=== PATIENT | female | born 1970 | race Caucasian/White ===

== ENCOUNTER 2023-09-14 05:08 | Observation (INO) ==
--- NOTE | 2023-08-16 10:34 | PAT Medication Instructions ---
Medication Instructions Date of Service August 16, 2023 Home Medications cholecalciferol (vitamin D3) 1 dose PO QAM clonazepam 1 mg tablet 1 mg PO QAM levothyroxine 75 mcg capsule 75 mcg PO QAM loratadine 10 mg capsule 10 mg PO QAM meloxicam 15 mg tablet 15 mg PO QAM sertraline 50 mg tablet 50 mg PO QAM albuterol sulfate 90 mcg/actuation aerosol inhaler 1 inh inhalation QID PRN sob losartan 100 mg tablet 100 mg PO QAM trazodone 50 mg tablet 50 - 100 mg PO HS PRN Sleep ASK your surgeon for instructions meloxicam 15 mg tablet 15 mg PO QAM DO NOT take the morning of surgery cholecalciferol (vitamin D3) 1 dose PO QAM loratadine 10 mg capsule 10 mg PO QAM losartan 100 mg tablet 100 mg PO QAM Take morning of surgery With a small sip of water, OTHERWISE NOTHING TO EAT OR DRINK AFTER MIDNIGHT: clonazepam 1 mg tablet 1 mg PO QAM levothyroxine 75 mcg capsule 75 mcg PO QAM sertraline 50 mg tablet 50 mg PO QAM albuterol sulfate 90 mcg/actuation aerosol inhaler 1 inh inhalation QID PRN sob (use if needed; please bring with you to hospital day of surgery if possible) Take evening before surgery albuterol sulfate 90 mcg/actuation aerosol inhaler 1 inh inhalation QID PRN sob (if needed) trazodone 50 mg tablet 50 - 100 mg PO HS PRN Sleep (if needed) Other Notes If you have any questions please call us at [phone] or [phone] or [phone] or [phone]
--- NOTE | 2023-08-21 09:26 | Anesthesiology Consultation ---
Date of Service August 21, 2023 Assessment & Plan (1) Encounter for pre-operative examination: Chart Review Chart Review: Acceptable Risk for Surgery and Patient seen in Pre Admission Testing - Check test AM DOS Pt currently scheduled as 23 hours observation. If surgeon decides to change patient to Same Day Joint, patient would be acceptable risk for TKA, pending patient is motivated, has good support and surgeon's office completes [facility] Program preop requirements. Per PAT appt on 08/21/23, no recent illness/disease exposures, illness related symptoms, or recent illness/disease positive tests. Will leave to surgeon's discretion if preop Covid testing needed Teaching & Discussion Pre-Anesthesia Teaching/Discussion Notes: Instructed NPO after midnight before surgery,except medications with 15 cc of water. Medication instructions provided according to the PAT guidelines. History Surgery Operation Date: 09/14/23 10:40 Proposed Procedures p Left Total Knee Arthroplasty - Higinio Dyer MD Height/Weight Height: 5 ft 9 in Weight: 92.1 kg Allergies Allergy/AdvReac Type Severity Reaction Status Date / Time cephalexin [From Keflex] Allergy Unknown rash,hives Verified 08/14/23 16:38 Penicillins Allergy Unknown rash,hives Verified 08/14/23 16:38 ciprofloxacin [From Cipro] Allergy rash,hives Verified 08/14/23 16:38 Medications Home Medications Medication Instructions Recorded Confirmed Last Taken cholecalciferol (vitamin D3) 1 dose PO QAM 07/28/19 08/14/23 Unknown clonazepam 1 mg tablet 1 mg PO QAM 07/28/19 08/14/23 Unknown levothyroxine 75 mcg capsule 75 mcg PO QAM 07/28/19 08/14/23 Unknown loratadine 10 mg capsule 10 mg PO QAM 07/28/19 08/14/23 Unknown meloxicam 15 mg tablet 15 mg PO QAM 07/28/19 08/14/23 Unknown sertraline 50 mg tablet 50 mg PO QAM 07/28/19 08/14/23 Unknown albuterol sulfate 90 mcg/actuation 1 inh inhalation QID PRN sob 08/14/23 08/14/23 Unknown aerosol inhaler losartan 100 mg tablet 100 mg PO QAM 08/14/23 08/14/23 Unknown trazodone 50 mg tablet 50 - 100 mg PO HS PRN Sleep 08/14/23 08/14/23 Unknown Past Medical History Medical History Anxiety Asthma rare use of PRN inhaler usually only needs inhaler with illness/cold weather 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 per pt, r/t dehydration and cardiac workup wnl. PCP ordered Holter monitor- no significant issues Hypothyroidism Osteoarthritis Exercise / Class Metabolic Activity II 4-5 Yardwork/Stairs/Walk up hill (one flight of stairs - no chest pain or SOB ) Past Family History Family History Other Coronary heart disease Deep vein thrombosis Diabetes Past Surgical History Surgical History History of laparoscopy History of wisdom tooth extraction Past Anesthesia History No Hx of Anesthesia Complications and No Family Hx of Anesthesia Complications History of PONV No Hx of PONV and No Hx of Motion Sickness Social History Smoking Status: Never smoker Do You Dip or Chew Tobacco: No Hx Alcohol Use: Yes Alcohol type: wine alcohol intake frequency: holidays/special occasions only Hx Substance Use: No substance use type: does not use Review of Systems Mild OTONIEL noted on sleep study "many years ago"- no device - still snores Patient denies chest pain, shortness of breath, dyspnea on exertion, reflux, cough, wheezing, palpitations. No hx of seizures, stroke, DE. No hx of blood clots or blood transfusions Physical Exam Vital Signs VITALS BP 121/58 P 68 TEMP 97.8 SP02 100% RESP 16 Constitutional no acute distress ENMT Mouth: no TMJ clicking Thyromental Distance: > or= 3.5 Finger Breadths (3.5) Mallampati Class: II Missing side teeth and molars Neck neck extension not limited Respiratory normal respiratory effort; no respiratory distress Auscultation: lungs clear to auscultation bilaterally; no wheezes Cardiovascular Rate/Rhythm: regular rate and regular rhythm Heart Sounds: no murmur Vessels: no carotid bruit Musculoskeletal Spine: no pain with cervical ROM Extremities: extremities normal to inspection Psychiatric Orientation: alert Lab Results Anesthesia Preop Results Results Anesthesia Widget: PT 11.0 Seconds (9.0-12.0) 08/21/23 PTT 27 Seconds (21-31) 08/21/23 INR 1.0 (0.9-1.1) 08/21/23 Blood Type AB Positive 08/21/23 Antibody Screen NEGATIVE 08/21/23 Testing Laboratory Results 08/09/23= WBC: 9.64 H/H: 14.6/44.1 PLATELETS: 233 SODIUM: 138 POTASSIUM: 3.9 CHLORIDE: 104 CO2: 30.5 BUN: 13.8 CREATININE: 0.71 GLUCOSE: 110 HGB A1C: 5.3 Electrocardiogram Date: 08/21/23 Sinus rhythm with first-degree AV block at 60 bpm Chest X-Ray Date: 08/21/23 Findings: + NAD FINDINGS: The lungs are clear. Prominence of the cardiac silhouette and hazy appearance to the right heart border is likely due to the pectus excavatum deformity.. No pleural effusions. No pneumothorax Other Testing Holter monitor 05/02/2023 = prevailing rhythm is sinus with heart rate varying between 65 and 128 with an average of 85 bpm, there was no significant pauses seen. There is a first-degree AV block. Solitary supraventricular and a solitary ventricular ectopic
--- NOTE | 2023-09-09 09:28 | History & Physical Report ---
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 #2 moderately advanced right hip DJD. I do think her knees are more symptomatic and more of an issue than her hip at this point. She is failed all conservative measures. Plan: We talked about treatment and her young age. She is failed conservative treatment. She like to proceed with left knee replacement. She is likely going to need her right knee and her right hip replacement done at some point in the future. Orgran proceed with left knee replacement. The risks Mente this procedure explained the patient clued but not limited to DVT, , infection, neurovascular injury, bleeding problems, pain, limited range of motion, stiffness, failure relieve her symptoms, incomplete relief of symptoms. The patient understands and desires to proceed informed consent is obtained. She is plan on staying overnight and hopefully discharge postop day 1. She will [facility] home [facility] program. DVT prophylaxis will be thigh-high teds, SCDs, aspirin twice a day. (2) Arthritis of right hip: History of Present Illness Chief Complaint: . Bilateral knee pain discomfort left side greater than the right. Primary Care Provider: NO PCP . 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 Her mother is been a long-term patient of mine in the past. She has a several year history of multiple joint aches and pains most severely in her knees but some in the right hip as well. She has been through extensive conservative treatment with SPECT of her knees over the years which have become less successful. She has had multiple steroid shots which provide very temporary relief only. She is gel shots which really did not help at all. She is looking to have her knees replaced. The left knee is a bit more painful than the right. The hip is manageable currently. Allergies Allergy/AdvReac Type Severity Reaction Status Date / Time cephalexin [From Keflex] Allergy Unknown rash,hives Verified 08/14/23 16:38 Penicillins Allergy Unknown rash,hives Verified 08/14/23 16:38 ciprofloxacin [From Cipro] Allergy rash,hives Verified 08/14/23 16:38 Home Medications Medication Instructions Recorded Confirmed Type cholecalciferol (vitamin D3) 1 dose PO QAM 07/28/19 08/14/23 History clonazepam 1 mg tablet 1 mg PO QAM 07/28/19 08/14/23 History levothyroxine 75 mcg capsule 75 mcg PO QAM 07/28/19 08/14/23 History loratadine 10 mg capsule 10 mg PO QAM 07/28/19 08/14/23 History meloxicam 15 mg tablet 15 mg PO QAM 07/28/19 08/14/23 History sertraline 50 mg tablet 50 mg PO QAM 07/28/19 08/14/23 History albuterol sulfate 90 mcg/actuation 1 inh inhalation QID PRN sob 08/14/23 08/14/23 History aerosol inhaler losartan 100 mg tablet 100 mg PO QAM 08/14/23 08/14/23 History trazodone 50 mg tablet 50 - 100 mg PO HS PRN Sleep 08/14/23 08/14/23 History Past Med/Surg History Medical History History of tachycardia 04/2023- [place] ER visit. per pt, r/t dehydration and cardiac workup wnl. 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 at PAT appt 08/21/23 Hypothyroidism Asthma rare use of PRN inhaler usually only needs inhaler with illness/cold weather Anxiety Depression Surgical History History of wisdom tooth extraction History of laparoscopy Family History Other Coronary heart disease Deep vein thrombosis Diabetes Social History Smoking Status: Never smoker Second Hand Exposure: No; Do You Dip or Chew Tobacco: No; Hx Alcohol Use: Yes Alcohol type: wine Hx Substance Use: No Preferred Language: Irish Communication Ability: Effective Supervisor Special Education Required: No Beliefs That Will Affect Care: None marital status: Current Living Situation: Family Feels Safe at Home: Yes Assistive Devices: Glasses Review of Systems All systems reviewed & are unremarkable except as noted in HPI & below. Physical Exam . Physical examination reveals a pleasant middle-age female. Looks in pretty good health. Examination of both knees reveal patient who ambulates with a bit of a waddling gait. Examination of left knee reveals varus alignment to her knee. Range of motion about 10 degrees show full extension to 120 degrees of flexion. No instability. No particular pain with hip motion. Small knee effusion. Moderate soft tissue envelope. Examination of the right knee reveals slight varus alignment. She got bony perjury medially. Range of motion 5-1 20. No instability. Constitutional WD/WN, vitals as above Neck trachea midline, no thyromegaly Respiratory normal respiratory effort, lungs clear to auscultation Cardiovascular RRR, no murmur, no edema Gastrointestinal (Abdomen) normal bowel sounds, soft, nontender, no hepatosplenomegaly Results & Data Results & Data Laboratory Results . Diagnostic Findings . X-rays of both knees were reviewed. Shows advanced bilateral knee DJD for the left knee is a bit worse than the right. She is got some tibiofemoral subluxation. She got significant patellofemoral disease as well. PG Care Time/CCT Total # of Minutes Spent Total Time Spent with Patient: Total time spent is greater than 50% in coordination of care (as documented) at patient's floor/unit and/or counseling patient: Coding Level of Care Code None Diagnoses Bilateral primary osteoarthritis of knee M17.0 Arthritis of right hip M16.11
[~2023-09-14 05:08] MED LIST: ALLERGY Noted to ORDERED Medication SCH
[2023-09-14] MEDS: LR 60ML/HR IV SCH (06:02)
[2023-09-14] MEDS: LR 500ML BOLUS, THEN 15ML/HR IV SCH (06:02)
[2023-09-14 06:06] LABS: Pregnancy Test, Serum Negative (Negative)
[2023-09-14] MEDS: ACETAMINOPHEN 500 MG TAB PO SCH ×2 (06:09→14:26)
[2023-09-14] MEDS: FAMOTIDINE 20 MG TAB PO SCH (06:09)
[2023-09-14] MEDS: dexAMETHasone**PF** 10 MG/ML VIAL IV SCH (06:09)
[2023-09-14] MEDS: CeleBREX 200 MG CAP PO SCH (06:09)
[2023-09-14] MEDS: METOCLOPRAMIDE HCL 10 MG TABLET PO SCH (06:09)
[2023-09-14] MEDS: Scopolamine 1 MG TDSY TD SCH (06:09)
[2023-09-14] MEDS ORDERED: BUPIVACAINE 0.5 % 5 MG/1 ML PF 10ML VIAL ONE (06:18)
[2023-09-14] MEDS ORDERED: ROPIVACAINE 0.5% 5 MG/ML 30 ML VIAL ONE (06:18)
[2023-09-14] MEDS ORDERED: PROPOFOL IV EMULSION 10 MG/ML 20 ML VIAL IV ONE ×3 (06:40→08:31)
[2023-09-14] MEDS ORDERED: MIDAZOLAM HCL 1 MG/ML 2ML VIAL ONE (06:40)
--- NOTE | 2023-09-14 06:53 | History & Physical Bridge Note ---
Date of Service September 14, 2023 History & Physical Bridge Note I have examined the patient, reviewed the History & Physical and in the interval since the performance of the History & Physical I have noted the following changes of clinical significance: no changes noted
[2023-09-14] MEDS ORDERED: Nursing to Pharmacy Communication SCH (07:00)
[2023-09-14] MEDS: ceFAZolin 2000MG 2,000 MG/15 ML SYR IV SCH ×2 (07:00→14:31)
[2023-09-14] MEDS: ceFAZolin 2,000 MG/15 ML IV PUSH IV ONE (07:40)
[2023-09-14] MEDS: ORTHO JOINT ANESTHETIC ONE (07:40)
[2023-09-14] MEDS: TRANEXAMIC ACID 1,000 MG **IV Intra-op IV SCH (07:53)
[2023-09-14] MEDS: ROPIV 0.5% 246mg, Ketorolac 30mg, EPINEPHrine 0.5mg in NSS INFIL SCH (08:34)
--- NOTE | 2023-09-14 08:44 | Operative Report ---
PG Post Operative Report Pre & Post Diagnosis Operation Date: 09/14/23 07:00 Pre-Op Diagnosis: Bilateral primary osteoarthritis of left knee Post-Op Diagnosis: Bilateral primary osteoarthritis of left knee I identified the patient and participated in the time-out.: Yes Procedure Operation Date: 09/14/23 07:00 Actual Procedures p Left Total Knee Arthroplasty(Left) - Higinio Dyer MD Surgeon Higinio Dyer MD Open Source Developer Deshaun Manning PA-C Estimated Blood Loss 50 Findings Consistent with Post-Op Diagnosis Operative findings revealed advanced the left knee DJD. She had extensive grade 4 [id number] disease the medial and patellofemoral compartments. Moderate- sized joint effusion. Specimens Left knee sent for pathology. Anesthesia Type Spinal MAC Complications none Disposition Accompanied Patient To Recovery: No Indications Patient is a 53-year-old female who initially had a several year history of increasing bilateral knee pain discomfort left side greater than the right. She failed all conservative measures. X-rays show advanced bilateral knee arthritis. She elected proceed with left total knee arthroplasty. Description of Procedure Operative implants consist of: 1. Biomet Vanguard size 65 left Po stabilized femoral component. 2. Biomet size 71 tibial tray. 3. 12 mm post stabilized polyethylene insert. 4. 31 x 8 all poly patella. The patient was taken the op room, identified, placed on the operating table in the supine position. All contact areas were appropriately padded. IV antibiotics 5 by anesthesia team. Spinal anesthetic and been implemented in the holding area along with an abductor canal block. A Mcdonald catheter was placed in sterile fashion to the left thigh tent was then placed in the left lower extremities then prepped and draped in usual sterile fashion. The left leg was elevated and exsanguinated with use of an Esmarch and the tourniquet was placed at 300 mmHg. An anterior approach the left knee was then performed to longitudinal incision centered over the patella. Sharp dissection was got through subcutaneous tissue down the extensor mechanism. A medial parapatellar arthrotomy incision was made. Some subperiosteal dissection was carried out medially. The fat pad was resected from Neath patella tendon. The lateral patellofemoral ligament was released. Patella subluxated laterally and the knee was flexed. The osteophytes taken on distal femur. The ACL and PCL were then released from distal femur and the tibia subluxated anteriorly. The external tibial alignment jig was then placed in the interface the tibia and adjusted 14 mm medially. Proximal tibial cut was made remove about a millimeter bone from the most deficient aspect medial tibial plateau. Some osteophytes taken off medially. The tibia sized to a size 71. Attention drawn to the femur. The distal femur stem with a sharp drill. Intramedullary canal was suction. A left 5 degree valgus cutting guide was placed. Distal femoral cutting block was pinned in place. Distal femoral cut was made take an additional 3 mm of bone off distal femur. The femur was then sized to a size 65. The AP cutting block was pinned parallel to the epicondylar axis which was 5 degrees of external rotation. The anterior cut, anterior chamfer, posterior cut, posterior chamfer cuts were made. The box cutting guide was placed in just slight lateral and the box cut was made. The knee was flexed. The remnants of the medial and lateral menisci were excised. The osteophytes taken off the posterior aspect the femur. A trial femoral component was placed for the tibial tray was pinned Char external rotation and the drill and stem punch were used to create defect in proximal tibia for the tibial tray. The knee was then trialed and the 12 mm insert fit most appropriately. Attention drawn the patella. The patella was cleaned of all soft tissue. Patella thickness measured 22 mm in thickness was cut down to 13. Was sized to a size 31 patella. The lug holes were drilled for 31 patella. The lateral osteophytes removed. Patella button was placed. Knee was taken through range of motion patella tracked nicely with no thumbs test. Attention drawn to place the permanent components. Nupathe all trial components were removed. Bone plug was placed in the distal femur limit blood loss. Double batch Palacos G cement was mixed. A Biomet Vanguard size 65 left Po stabilized femoral component, size 71 tibial tray, a 12 mm post stabilized polyethylene insert, and a 31 x 8 all poly patella then cemented in place. The knee was brought out into full extension till cement hardened. Final cement check was then performed. The pericapsular tissues were injected with total 100 cc of orthopedic joint mix. The patient did receive 1 g tranexamic acid. The tourniquet was then let down for final tourniquet time 54 minutes. Hemostasis assured the electrocautery. Extensor Meclomen closed with combination 1 PDS suture #1 Vicryl suture in a [id number] fashion. Extensor Meclomen checked found intact and subcutaneous tissues then closed with 2 Dexon suture in buried interrupted fashion skin was closed skin heather. Leg was then cleaned and dried and sterile dressing with Xeroform, 4 fours, sterile cast padding, Landon bandage were applied. Patient then transferred to the recovery in stable condition. Patient tolerated procedure well and there were no complications. Deshaun Manning, my physician supply assistant, was present for the entire procedure. His assistance was essential and required for appropriate patient positioning, prepping and draping, surgical exposure, performing the technical details of the operation, placement the implants, closure of the wound, and placement of the sterile bandage. I attest to the content of the Intraoperative Record and any orders documented therein. Any exceptions are noted below.
--- NOTE | 2023-09-14 09:06 | XRay Report ---
XR knee LT 1 or 2V routine HISTORY: 53 years-old Female Surgical Post Op left knee arthroplasty COMPARISON: 08/09/2023 TECHNIQUE: 2 views of the left knee FINDINGS: Total joint arthroplasty with patellar resurfacing. Anterior midline skin heather with expected posto perative soft tissue swelling and deep tissue air. No acute fracture, dislocation or unexpected opaqu e foreign body. IMPRESSION: Total joint arthroplasty with expected postoperative changes. ACT 112: Negative or not required by law. The above report was generated using voice recognition software. It may contain grammatical, syntax o r spelling errors. Electronically signed by: Danny Cantrell M.D. 09/14/2023 9:04 AM
--- NOTE | 2023-09-14 09:20 | Anesthesiology Progress Note ---
Date of Service September 14, 2023 Anesthesia Post Procedure Vital Signs Vital Signs: Temp Pulse Pulse Resp BP Pulse Ox O2 Del Method 09/14/23 09:15 88 15 110/61 95 Room Air 09/14/23 09:05 89 15 111/61 95 Room Air 09/14/23 08:55 90 17 112/65 97 Room Air 09/14/23 08:46 36.5 C 90 16 91/59 L 99 Oxymask 09/14/23 05:38 36.6 C 113 H 18 121/79 97 Room Air O2 Flow Rate 09/14/23 09:15 09/14/23 09:05 09/14/23 08:55 09/14/23 08:46 7 09/14/23 05:38 Pain Intensity Left Knee: Pain Intensity: 2 Notes Mental Status: alert / awake / arousable Patient Amnestic to Procedure: Yes Nausea / Vomiting: adequately controlled Pain: adequately controlled Airway Patency, RR, SpO2: stable & adequate BP & HR: stable & adequate Hydration State: stable & adequate Neuraxial Anesthesia: was administered and sensory block is resolving Anesthetic Complications: no major complications apparent
[2023-09-14] MEDS ORDERED: NALOXONE HCL 0.4 MG/1 ML VIAL/CARP IV PRN (09:50)
[2023-09-14] MEDS ORDERED: MAGNESIUM HYDROXIDE SUSP 30 ML UDC PO PRN (09:50)
[2023-09-14] MEDS ORDERED: bisacodyL 10 MG SUPP PR PRN (09:50)
[2023-09-14] MEDS ORDERED: traZODone HCL 50 MG TAB PO PRN (09:50)
[2023-09-14] MEDS ORDERED: diphenhydrAMINE Capsule 25 MG CAP PO PRN (09:50)
[2023-09-14] MEDS ORDERED: ONDANSETRON INJ 2 MG/ML 2 ML VIAL IV PRN (09:50)
[2023-09-14] MEDS ORDERED: HYDROmorphone INJ 0.5 MG/0.5 ML SYR IV PRN (09:50)
[2023-09-14] MEDS ORDERED: METOCLOPRAMIDE HCL INJ 5 MG/ML 2 ML VIAL IV PRN (09:50)
[2023-09-14] MEDS ORDERED: ALBUTEROL HFA 8 GM INHALER INH PRN (09:50)
[2023-09-14] MEDS ORDERED: ALUMINUM/MAGNESIUM SUSP 30 ML UDC PO PRN (09:50)
[2023-09-14] MEDS: CHOLECALCIFEROL 25 MCG (1000 UNITS) TAB PO SCH (11:11)
[2023-09-14] MEDS: KETOROLAC 30 MG/ML VIAL IV SCH (11:12)
[2023-09-14] MEDS: LEVOTHYROXINE SODIUM 75 MCG TABLET PO SCH (11:12)
[2023-09-14] MEDS: SERTRALINE HCL 50 MG TABLET PO SCH (11:12)
[2023-09-14] MEDS: LORATADINE 10 MG TAB PO SCH (11:12)
[2023-09-14] MEDS: DOCUSATE SODIUM 100 MG CAP PO SCH (11:13)
[2023-09-14] MEDS: LOSARTAN POTASSIUM 50 MG TAB PO SCH (11:13)
[2023-09-14] MEDS: ASPIRIN 81 MG ECTAB PO SCH (11:13)
[2023-09-14] MEDS: MULTIVITAMIN TAB PO SCH (11:13)
[2023-09-14] MEDS: SODIUM CHLORIDE 0.9% 1,000 ML IV SCH (11:14)
[2023-09-14] MEDS: clonazePAM 1 MG TAB PO SCH (11:16)
[2023-09-14] MEDS: SENNA 8.6 MG TAB PO SCH ×2 (11:21→20:58)
[2023-09-14] MEDS: TRANEXAMIC ACID / 0.7% NACL 1,000 MG/100 ML BAG IV SCH (14:27)
[2023-09-14] MEDS: ASCORBIC ACID 500 MG TAB PO SCH (16:18)
[2023-09-14] MEDS: Scopolamine CHECK PATCH PLACEMENT SCH (16:19)
[2023-09-14] MEDS: oxyCODONE HCL IR 5 MG TAB (IMMEDIATE RELEASE) PO PRN (18:36)
[2023-09-15 06:55] LABS: Hemoglobin 11.5 g/dl (12.0-16.0); Mean Corpuscular Hemoglobin 29.1 pg (25.0-34.0); Mean Corpuscular Hgb Conc 32.9 g/dL (32.0-36.0); Mean Corpuscular Volume 88.6 fL (80.0-100.0); Mean Platelet Volume 11.4 fL (9.4-12.4); Platelet Count 187 K/uL (130-400); RDW Coefficient of Variation 12.7 % (11.5-14.5); RDW Standard Deviation 41.1 fL (36.4-46.3); Red Blood Count 3.95 M/uL (4.20-5.40); White Blood Count 13.71 K/ul (4.8-10.8)
[2023-09-15 07:28] LABS: BUN Creatinine Ratio 20.9 (10-20); Calcium 8.1 mg/dl (8.6-10.3); Creatinine Clr Calc Pharmacy 115.9 ml/min; Est GFR (African American) 117.1 ml/min; Est GFR (Non-African American) 101.1 ml/min; Potassium 3.6 mmol/L (3.5-5.1)
--- NOTE | 2023-09-15 07:57 | Surgery Progress Note ---
Date of Service September 15, 2023 Assessment & Plan (1) Status post left knee replacement: Plan: 53-year-old female postop day 1 for left knee replacement doing well. Pain is controlled. She is neurologically intact. Plan: 1. DVT prophylaxis including thigh-high teds, SCDs, aspirin twice a day. 2. PT/OT. Weight-bear as tolerated. Left total knee protocol. 3. Pain control doing okay with current pain regimen. 4. Disposition plan to discharge to home with some home health later today. Admission and Anticipated Discharge Date Admission Date: September 14, 2023 Subjective 53-year-old female postop day 1 from a left knee replacement. She is doing pretty well this morning. Pain is controlled. No chest pain or shortness of breath. Not feeling dizzy or lightheaded. Physical Exam Physical Exam: Examination left leg reveals dressing be clean dry and intact. She can dorsiflex and plantarflex her foot appropriately. She is neurologically intact. Respiratory: normal respiratory effort, lungs clear to auscultation Cardiovascular: RRR, no murmur, no edema Gastrointestinal (Abdomen): normal bowel sounds, soft, nontender, no hepatosplenomegaly Results & Data Vital Signs (Past 12 Hours) Vital Signs Temp Pulse Resp BP Pulse Ox O2 Del Method 09/15/23 07:39 36.4 C L 56 L 16 127/57 L 100 Room Air 09/15/23 03:00 36.8 C 85 18 121/66 97 Room Air 09/14/23 19:57 Room Air Laboratory Results Hemoglobin is 11.5. Hematocrit is 35.0 PG Care Time/CCT Total # of Minutes Spent Total Time Spent with Patient: Total time spent is greater than 50% in coordination of care (as documented) at patient's floor/unit and/or counseling patient: Coding Level of Care Code None Diagnoses Status post left knee replacement Z96.652
[2023-09-15] MEDS: dexAMETHasone 10 MG in SYRINGE 0 ML IV SCH (08:11)
--- NOTE | 2023-09-18 06:40 | Discharge Summary ---
Date of Service September 18, 2023 Discharge Data Procedures Performed Operation Date: 09/14/23 07:00 Actual Procedures p Left Total Knee Arthroplasty(Left) - Higinio Dyer MD Hospital Course (1) Status post left knee replacement: This is a 53 year old patient admitted on 09/14/23 and underwent total knee arthroplasty. She tolerated the procedure well and there were no complications. Transferred to the PACU post op and later to the orthopedic floor for further care. She was given ancef for antibiotic prophylaxis. She was also given MIN stockings, SCDs, and aspirin for DVT prophylaxis. Hemoglobin, hematocrit, and vital signs were monitored during her hospital stay and remained stable. Did not require any blood transfusions. There were no complications during her hospital stay. By post op day #1 the patient was tolerating a regular diet, pain was reasonably controlled with oral pain medicine, and she was participating in physical therapy. On post op day #1 the patient was discharged home and set up with home health care. She was given printed discharge instructions including prescriptions for extra strength tylenol, aspirin, cefadroxil, ketorolac, zofran, oxycodone, and senokot. Continue physical therapy, weight bearing as tolerated. Continue MIN stockings. Follow up approximately 2 weeks post op or sooner if there are problems or concerns. Coding Level of Care Code None Diagnoses Status post left knee replacement Z96.652
== END 2023-09-15 12:03 | disposition home health service (06) ==
LOC: 3W 05:08 → ASU 05:08

== ENCOUNTER 2025-01-27 07:01 | Observation (INO) ==
--- NOTE | 2024-12-30 14:58 | PAT Medication Instructions ---
Medication Instructions Date of Service December 30, 2024 Home Medications Medication Instructions Recorded acetaminophen 500 mg tablet 1,000 mg (2 x 500 mg) PO TID pain 09/12/23 (Tylenol Extra Strength) 30 days #180 tabs ondansetron 4 mg disintegrating 4 mg PO Q8 PRN nausea #20 tabs 09/12/23 tablet cholecalciferol (vitamin D3) 1 dose PO QAM clonazepam 1 mg tablet 1 mg PO QAM levothyroxine 75 mcg capsule 75 mcg PO QAM loratadine 10 mg capsule 10 mg PO QAM sertraline 50 mg tablet 100 mg PO QAM albuterol sulfate 90 mcg/actuation aerosol inhaler 1 inh inhalation QID PRN losartan 100 mg tablet 100 mg PO QAM trazodone 50 mg tablet 50 - 100 mg PO HS PRN acetaminophen 500 mg tablet (Tylenol Extra Strength) 1,000 mg (2 x 500 mg) PO TID ondansetron 4 mg disintegrating tablet 4 mg PO Q8 PRN calcium carbonate (Calcium 600) 600 mg PO BID meloxicam 15 mg tablet 15 mg PO QAM [id number] 8 mg-folic 400 mcg-K 50 mcg-lutein 300 mcg tablet (Centrum Silver Women) 1 tab PO DAILY omeprazole 20 mg tablet,delayed release 20 mg PO QAM ASK your surgeon for instructions meloxicam 15 mg tablet 15 mg PO QAM DO NOT take the morning of surgery cholecalciferol (vitamin D3) 1 dose PO QAM loratadine 10 mg capsule 10 mg PO QAM losartan 100 mg tablet 100 mg PO QAM calcium carbonate (Calcium 600) 600 mg PO BID [id number] 8 mg-folic 400 mcg-K 50 mcg-lutein 300 mcg tablet (Centrum Silver Women) 1 tab PO DAILY Take morning of surgery With a small sip of water, OTHERWISE NOTHING TO EAT OR DRINK AFTER MIDNIGHT: clonazepam 1 mg tablet 1 mg PO QAM levothyroxine 75 mcg capsule 75 mcg PO QAM sertraline 50 mg tablet 100 mg PO QAM albuterol sulfate 90 mcg/actuation aerosol inhaler 1 inh inhalation QID PRN(use if needed; please bring with you to hospital day of surgery if possible) acetaminophen 500 mg tablet (Tylenol Extra Strength) 1,000 mg (2 x 500 mg) PO TID ondansetron 4 mg disintegrating tablet 4 mg PO Q8 PRN(if needed) omeprazole 20 mg tablet,delayed release 20 mg PO QAM Take evening before surgery albuterol sulfate 90 mcg/actuation aerosol inhaler 1 inh inhalation QID PRN(if needed) trazodone 50 mg tablet 50 - 100 mg PO HS PRN(if needed) acetaminophen 500 mg tablet (Tylenol Extra Strength) 1,000 mg (2 x 500 mg) PO TID ondansetron 4 mg disintegrating tablet 4 mg PO Q8 PRN(if needed) calcium carbonate (Calcium 600) 600 mg PO BID Other Notes If you have any questions please call us at [phone] or [phone] or [phone] or [phone]
--- NOTE | 2025-01-09 09:14 | Anesthesiology Consultation ---
Date of Service January 09, 2025 Assessment & Plan (1) Encounter for pre-operative examination: - Check test DOS - Infectious disease screening: Per assessment on 01/09/22- No known recent infectious disease contacts or current infectious disease symptoms. - Outpatient joint assessment: Pt currently scheduled for inpatient pathway. If surgeon requests review for outpatient joint pathway, patient is an acceptable candidate for outpatient joint program from anesthesia standpoint pending surgeon's office assessment that patient is motivated, has good support and completes Same Day Joint Program preop requirements. - S/P Left TKA (09/14/23): SAB + regional at [facility] Chart Review Chart Review: Acceptable Risk for Surgery and Patient seen in Pre Admission Testing Teaching & Discussion Pre-Anesthesia Teaching/Discussion Notes: Instructed NPO after midnight before surgery,except medications with 15 cc of water. Medication instructions provided according to the PAT guidelines. History Surgery Operation Date: 01/27/25 10:40 Proposed Procedures p Right Total Hip Arthroplasty - Higinio Dyer MD Height/Weight Height: 5 ft 9 in Weight: 93.2 kg Allergies Allergy/AdvReac Type Severity Reaction Status Date / Time Penicillins Allergy Unknown Rash, hives Verified 01/08/25 09:24 ciprofloxacin [From Cipro] Allergy Rash, hives Verified 01/08/25 09:24 Medications Home Medications Medication Instructions Recorded Confirmed Last Taken cholecalciferol (vitamin D3) 1 dose PO QAM 07/28/19 12/29/24 09/11/23 clonazepam 1 mg tablet 1 mg PO QAM 07/28/19 12/29/24 09/14/23 04:00 levothyroxine 75 mcg capsule 75 mcg PO QAM 07/28/19 12/29/24 09/14/23 04:00 loratadine 10 mg capsule 10 mg PO QAM 07/28/19 12/29/24 09/13/23 09:00 sertraline 50 mg tablet 100 mg PO QAM 07/28/19 12/29/24 09/14/23 04:00 albuterol sulfate 90 mcg/actuation 1 inh inhalation QID PRN sob 08/14/23 12/29/24 Unknown aerosol inhaler losartan 100 mg tablet 100 mg PO QAM 08/14/23 12/29/24 09/13/23 09:00 trazodone 50 mg tablet 50 - 100 mg PO HS PRN Sleep 08/14/23 12/29/24 09/13/23 21:00 50 mg acetaminophen 500 mg tablet 1,000 mg (2 x 500 mg) PO TID pain 09/12/23 12/29/24 09/13/23 18:00 (Tylenol Extra Strength) 30 days #180 tabs ondansetron 4 mg disintegrating 4 mg PO Q8 PRN nausea #20 tabs 09/12/23 12/29/24 Unknown tablet calcium carbonate (Calcium 600) 600 mg PO BID 12/29/24 12/29/24 Unknown meloxicam 15 mg tablet 15 mg PO QAM 12/29/24 12/29/24 Unknown zeaxawgc-luoa-wfem 8 mg-folic 400 1 tab PO DAILY 12/29/24 12/29/24 Unknown mcg-K 50 mcg-lutein 300 mcg tablet (Centrum Silver Women) omeprazole 20 mg tablet,delayed 20 mg PO QAM 12/29/24 12/29/24 Unknown release Past Medical History Medical History Acid reflux controlled Anxiety Asthma Cardiac murmur "Since " "No murmur" per PAT visit 01/09/2025 Depression History of COVID-19 (2022) Resolved History of ovarian cyst No current issues HTN (hypertension) Hypothyroidism Osteoarthritis Exercise / Class Metabolic Activity II 4-5 Yardwork/Stairs/Walk up hill (one FS: no CP, no SOB) Past Family History Family History Other Coronary heart disease Deep vein thrombosis Diabetes Past Surgical History Surgical History History of laparoscopy History of wisdom tooth extraction Status post left knee replacement Left TKA: SAB + regional at [facility] (09/14/23) Past Anesthesia History No Hx of Anesthesia Complications and No Family Hx of Anesthesia Complications History of PONV No Hx of PONV and Hx of Motion Sickness Social History Smoking Status: Never smoker Do You Dip or Chew Tobacco: No Hx Alcohol Use: Yes Alcohol type: wine alcohol intake frequency: holidays/special occasions only Hx Substance Use: No substance use type: does not use Review of Systems Patient denies chest pain, shortness of breath, dyspnea on exertion, fever, chills, cough, wheezing, palpitations. Physical Exam Vital Signs BP 134/80 P 64 TEMP 98.6 SP02 97%RA RESP 18 Physical Full cervical extension range of motion. Full TMJ range of motion. TMD > 3.5 finger breaths Mallampati Score II Dentition: intact Lungs: clear throughout to auscultation Cardiac: regular rate and rhythm, no murmurs noted Spine: normal Carotid arteries: negative bruit Extremities: no LE edema Lab Results Anesthesia Preop Results Results Anesthesia Widget: WBC 9.06 K/ul (4.8-10.8) 01/09/25 Hgb 13.9 g/dl (12.0-16.0) 01/09/25 Hct 40.9 % (37.0-47.0) 01/09/25 Plt 223 K/uL (130-400) 01/09/25 Na 136 mmol/L (136-145) 01/09/25 K 4.1 mmol/L (3.5-5.1) 01/09/25 Cl 100 mmol/L (98-107) 01/09/25 CO2 31 mmol/L (21-32) 01/09/25 BUN 19 mg/dl (6-23) 01/09/25 Creat 0.57 mg/dl (0.6-1.2) L 01/09/25 Glucose Level 87 mg/dl (70-99(Fasting)) 01/09/25 PT 10.9 Seconds (9.0-12.0) 01/09/25 PTT 27 Seconds (21-31) 01/09/25 INR 1.0 (0.9-1.1) 01/09/25 Blood Type AB Positive 01/09/25 Antibody Screen NEGATIVE 01/09/25 Testing Electrocardiogram Date: 01/09/25 SR with first degree AVB at 62bpm. "Otherwise normal ECG" No significant change compared to 08/21/2023 per ion implant machine operator comparison. Chest X-Ray Date: 01/09/25 IMPRESSION: 1. No focal consolidation, infiltrates, or granuloma noted. No active pulmonary abnormality. 2. Mild pectus excavatum deformity.
--- NOTE | 2025-01-24 13:42 | History & Physical Report ---
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 If truly limiting her particular over the past several months. She is having trouble doing her job. She would like to have her right hip fixed. Plan: We are going to take her to the operating room for a right total hip placement. Risks and benefit of this procedure explained. Informed consent was obtained. She is planning on staying in the hospital overnight and likely discharge postoperative day 1. Will use aspirin for DVT prophylaxis. (2) Status post left knee replacement: History of Present Illness Chief Complaint: . Right hip pain. Primary Care Provider: Mustapha Gordon . 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 She is about a year and a half out from a left knee replacement which is done pretty well. Over the past several months as she developed increased pain discomfort in her right hip. 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 At the end of the day she is pretty miserable on her drive home. Describes lateral hip pain groin pain rating down to her knee but no further. No numbness. She is ready to have her hip fixed. Allergies Allergy/AdvReac Type Severity Reaction Status Date / Time Penicillins Allergy Unknown Rash, hives Verified 01/08/25 09:24 ciprofloxacin [From Cipro] Allergy Rash, hives Verified 01/08/25 09:24 Home Medications Medication Instructions Recorded Confirmed Type cholecalciferol (vitamin D3) 1 dose PO QAM 07/28/19 12/29/24 History clonazepam 1 mg tablet 1 mg PO QAM 07/28/19 12/29/24 History levothyroxine 75 mcg capsule 75 mcg PO QAM 07/28/19 12/29/24 History loratadine 10 mg capsule 10 mg PO QAM 07/28/19 12/29/24 History sertraline 50 mg tablet 100 mg PO QAM 07/28/19 12/29/24 History albuterol sulfate 90 mcg/actuation 1 inh inhalation QID PRN sob 08/14/23 0 12/29/24 History aerosol inhaler losartan 100 mg tablet 100 mg PO QAM 08/14/23 12/29/24 History trazodone 50 mg tablet 50 - 100 mg PO HS PRN Sleep 08/14/23 12/29/24 History acetaminophen 500 mg tablet 1,000 mg (2 x 500 mg) PO TID pain 09/12/23 12/29/24 Rx (Tylenol Extra Strength) 30 days #180 tabs ondansetron 4 mg disintegrating 4 mg PO Q8 PRN nausea #20 tabs 09/12/23 12/29/24 Rx tablet calcium carbonate (Calcium 600) 600 mg PO BID 12/29/24 12/29/24 History meloxicam 15 mg tablet 15 mg PO QAM 12/29/24 12/29/24 History qezpyivv-zxai-imap 8 mg-folic 400 1 tab PO DAILY 12/29/24 12/29/24 History mcg-K 50 mcg-lutein 300 mcg tablet (Centrum Silver Women) omeprazole 20 mg tablet,delayed 20 mg PO QAM 12/29/24 12/29/24 History release Past Med/Surg History Problem List Encounter for pre-operative examination Arthritis of right hip Bilateral primary osteoarthritis of knee Medial meniscus tear Medical History History of COVID-19 (2022) Resolved Acid reflux controlled HTN (hypertension) Osteoarthritis History of ovarian cyst No current issues Cardiac murmur "Since " "No murmur" per PAT visit 01/09/2025 Hypothyroidism Asthma Anxiety Depression Surgical History Status post left knee replacement Left TKA: SAB + regional at [facility] (09/14/23) History of wisdom tooth extraction History of laparoscopy Family History Other Coronary heart disease Deep vein thrombosis Diabetes Social History Smoking Status: Never smoker Second Hand Exposure: No; Do You Dip or Chew Tobacco: No; Tobacco Cessation Education Requested by Patient: No Hx Alcohol Use: Yes Alcohol type: wine Hx Substance Use: No Preferred Language: Uzbek Communication Ability: Effective Information Consultant Required: No Beliefs That Will Affect Care: None marital status: Current Living Situation: Family Other Information That Helps Us Care for You: No Feels Safe at Home: Yes Safety Concerns: Feels Safe At This Time Assistive Devices: Glasses Review of Systems All systems reviewed & are unremarkable except as noted in HPI & below. Physical Exam . Physical examination reveals a pleasant middle-age female who looks me in good health. Examination of the right hip and leg reveal patient walks with a slightly antalgic gait. She about 1/2 cm short on the right side compared to the left. She has pain with any type of hip motion. She can internally rotate to about 10 degrees it is painful. No knee effusion. Negative straight leg raise. She is neurologically intact. Constitutional WD/WN, vitals as above Neck trachea midline, no thyromegaly Respiratory normal respiratory effort, lungs clear to auscultation Cardiovascular RRR, no murmur, no edema Gastrointestinal (Abdomen) normal bowel sounds, soft, nontender, no hepatosplenomegaly Results & Data Results & Data Laboratory Results . Diagnostic Findings . X-rays of the right hip were reviewed. She has advanced right hip arthritis. This has progressed significantly over the past year. She has complete loss of the joint space. She has got an aspherical head suggestive of some underlying dysplasia. A protrusio kind of appearance of the acetabulum. PG Care Time/CCT Total # of Minutes Spent Total Time Spent with Patient: Total time spent is greater than 50% in coordination of care (as documented) at patient's floor/unit and/or counseling patient: Coding Level of Care Code None Diagnoses Arthritis of right hip M16.11 Status post left knee replacement Z96.652
[~2025-01-27 07:01] MED LIST changes: -ALLERGY Noted to ORDERED Medication SCH; +BUPIVACAINE 0.5 % 5 MG/1 ML PF 10ML VIAL ONE
[2025-01-27] MEDS ORDERED: PROPOFOL IV EMULSION 10 MG/ML 20 ML VIAL IV ONE (07:28)
[2025-01-27] MEDS ORDERED: ONDANSETRON INJ 2 MG/ML 2 ML VIAL ONE (07:28)
[2025-01-27] MEDS: ACETAMINOPHEN 500 MG TAB PO SCH ×2 (07:52→14:40)
[2025-01-27] MEDS: METOCLOPRAMIDE HCL 10 MG TABLET PO SCH (07:52)
[2025-01-27] MEDS: FAMOTIDINE 20 MG TAB PO SCH (07:52)
[2025-01-27] MEDS: CeleBREX 200 MG CAP PO SCH (07:52)
[2025-01-27] MEDS: LR 500ML BOLUS, THEN 15ML/HR IV SCH (07:53)
[2025-01-27] MEDS: LR 60ML/HR IV SCH (07:53)
[2025-01-27] MEDS: dexAMETHasone**PF** 10 MG/ML VIAL IV SCH (07:53)
[2025-01-27 08:18] LABS: Pregnancy Test, Serum Negative (Negative)
--- NOTE | 2025-01-27 08:31 | History & Physical Bridge Note ---
Date of Service January 27, 2025 History & Physical Bridge Note I have examined the patient, reviewed the History & Physical and in the interval since the performance of the History & Physical I have noted the following changes of clinical significance: no changes noted
[2025-01-27] MEDS ORDERED: MIDAZOLAM HCL 1 MG/ML 2ML VIAL ONE (08:39)
[2025-01-27] MEDS: TRANEXAMIC ACID 1,000 MG **IV Pre-op IV SCH (08:40)
[2025-01-27] MEDS ORDERED: PROMETHAZINE HCL 6.25 MG in SODIUM CHLORIDE 0.9% 50 ML IV PRN (09:05)
[2025-01-27] MEDS ORDERED: ATROPINE SULFATE 0.1 MG/ML 10ML SYR IV PRN (09:05)
[2025-01-27] MEDS ORDERED: ONDANSETRON INJ 2 MG/ML 2 ML VIAL IV PRN ×2 (09:05→13:09)
[2025-01-27] MEDS ORDERED: KETOROLAC 30 MG/ML VIAL ONE (09:10)
[2025-01-27] MEDS: BUPIVACAINE/EPINEPHRINE 0.5% MPF 1:200,000 30 ML VIAL ONE (09:40)
[2025-01-27] MEDS ORDERED: PHENYLEPHRINE 100MCG/ML 5ML SYR ONE (09:44)
--- NOTE | 2025-01-27 11:05 | Operative Report ---
PG Post Operative Report Pre & Post Diagnosis Operation Date: 01/27/25 08:50 Pre-Op Diagnosis: Right Hip Osteoarthritis Post-Op Diagnosis: Right Hip Osteoarthritis I identified the patient and participated in the time-out.: Yes Procedure Operation Date: 01/27/25 08:50 Actual Procedures p Right Total Hip Arthroplasty, Uncemented(Right) - Higinio Dyer MD Surgeon Higinio Dyer MD Bsa/Aml Compliance Officer Kirby Herman PA-C Estimated Blood Loss 100 Findings Consistent with Post-Op Diagnosis Specimens Right femoral head sent for pathology. 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 She failed conservative measures. X-rays show advanced right hip arthritis. She elected proceed with right total hip arthroplasty. Description of Procedure Operative implants consist of: 1. Biomet G7 size 54 mm acetabular shell. 2. 6.5 cancellous acetabular screws 1 of 35 mm in length and 1 at 30 mm length. 3. [place] hole central control room operator. 4. Highly cross-linked polyethylene liner with a 54 mm outer diameter 36 mm diameter. 5. DePuy Karaya size 11 KLA femoral stem. 6. +5/36 mm ceramic articular ball. The patient was taken to the op room, identified, and placed on the operating table in the supine position. All contact areas were appropriately padded. IV antibiotics arrived by anesthesia team. A spinal anesthetic had been implemented holding area. A Mcdonald catheter was placed in sterile fashion. The patient then placed in the left lateral decubitus position. An axillary roll was placed. Distal Birkett position was used for positioning. The right hip and leg were then prepped and draped in usual sterile fashion. A posterolateral approach to the right hip was then performed through a curvilinear incision centered over the greater trochanter. Sharp dissection was Through subcutaneous tissue down of the IT band gluteal fascia with the IT band gluteal fascia was lysed longitudinally in line with skin incision. The underlying greater bursa was excised. The piriformis and external rotators along with the posterior joint capsule were then released from the posterior aspect of the hip as a single layer. Great care was taken throughout the procedure protect the sciatic nerve at all times. The hip was internally rotated and dislocated. A femoral neck osteotomy cut was made with Final Cut about a centimeter above the lesser trochanter. Femoral head was removed and sent for pathology. The femur was retracted anteriorly. Attention drawn the acetabulum. The acetabular labrum was excised. The Pulvinal fat was excised. Sequential reaming the acetabulum was then performed again with a size 45 and progressing up to 53. A 54 reamer was then used and I placed a 54 mm Biomet G7 acetabular cup in about 40 degrees lateral opening and 20 degrees of anteversion. It was fixed with two 6.5 screws. A trial liner was placed. Attention drawn the femur. The proximal femur was entered with a [employer] cutter followed by canal finder. I then broached begin with size 8 and progressing up to a 11. I could not quite get the [address]. We then did take a handbag finisher and used the 9, 9-1/2, and the 10 mm reamers and then rebroached and were able to get the 11 stem down to the calcar. We trialed the hip and the +5 articular ball provide full stability. It was appropriate tensioned and the leg lengths of superior equal. We elected place these implants. All trial implants were removed. An apex hole central control room operator was placed. A highly cross-linked polyethylene liner was placed. A size 11 KLA femoral stem was impacted in position. A +5/36 mm ceramic articular ball was placed. Hip was located and once again found to be stable. Attention drawn toward closing. Wound was irrigated coconuts with pulsatile lavage solution. I did inject locally with 60 cc of half percent Marcaine with epinephrine. The posterior capsule and external rotators were then repaired through drill holes in the posterior trochanter with #2 Tycron suture. The IT band gluteal fascia was then closed in 1 PDS suture in running fashion. Subcutaneous tissues were then closed with 2 layers of the deep layer #2 Vicryl suture and subcutaneous tissues with 2-0 Dexon suture in a buried interrupted fashion. Skin was closed skin heather. Leg was then cleaned and dried. A Prevena VAC dressing was applied. The patient was then transferred to the recovery room in stable condition. Patient tolerated procedure well and there were no complications. Kirby Herman, my physician kitchen assistant, was present for the entire procedure. His assistance was required for proper patient positioning, prepping and draping, surgical exposure, retraction, form the technical details of the operation, placement of the implants, closure of the incision site, placement of postoperative sterile bandage. I attest to the content of the Intraoperative Record and any orders documented therein. Any exceptions are noted below.
--- NOTE | 2025-01-27 11:09 | XRay Report ---
XR hip 1V RT w pelvis CLINICAL HISTORY: IN PACU - Post Surgical COMPARISON: None FINDINGS: Right hip prosthesis shows no hardware complication. There is expected soft tissue gas. Sk in heather are present. IMPRESSION: Unremarkable postoperative exam. ACT 112: Negative or not required by law. Electronically signed by: Marcus Amador M.D. 01/27/2025 11:08 AM
[2025-01-27] MEDS ORDERED: NALOXONE HCL 0.4 MG/1 ML VIAL/CARP IV PRN (13:09)
[2025-01-27] MEDS ORDERED: ALUMINUM/MAGNESIUM SUSP 30 ML UDC PO PRN (13:09)
[2025-01-27] MEDS ORDERED: HYDROmorphone INJ 0.5 MG/0.5 ML SYR IV PRN (13:09)
[2025-01-27] MEDS ORDERED: METOCLOPRAMIDE HCL INJ 5 MG/ML 2 ML VIAL IV PRN (13:09)
[2025-01-27] MEDS ORDERED: MAGNESIUM HYDROXIDE SUSP 30 ML UDC PO PRN (13:09)
[2025-01-27] MEDS ORDERED: diphenhydrAMINE Capsule 25 MG CAP PO PRN (13:09)
[2025-01-27] MEDS ORDERED: ALBUTEROL HFA 8 GM INHALER INH PRN (13:09)
[2025-01-27] MEDS ORDERED: ACETAMINOPHEN 500 MG TAB PO SCH (14:00)
[2025-01-27] MEDS: KETOROLAC 30 MG/ML VIAL IV SCH (14:40)
[2025-01-27] MEDS: SODIUM CHLORIDE 0.9% 1,000 ML IV SCH (14:45)
--- NOTE | 2025-01-27 14:54 | Anesthesiology Progress Note ---
Date of Service January 27, 2025 Anesthesia Post Procedure Vital Signs Vital Signs: Temp Pulse Pulse Resp BP Pulse Ox O2 Del Method 01/27/25 14:10 36.9 C 101 H 16 121/78 97 Room Air 01/27/25 13:36 93 H 17 115/77 96 Room Air 01/27/25 13:11 36.7 C 94 H 16 135/82 97 Room Air 01/27/25 12:45 88 12 117/64 92 Room Air 01/27/25 12:30 87 13 115/74 95 Room Air 01/27/25 12:20 89 15 119/79 93 Room Air 01/27/25 12:05 84 12 117/68 93 Room Air 01/27/25 11:50 82 13 113/73 96 Room Air 01/27/25 11:35 36.4 C L 83 15 133/84 99 Room Air 01/27/25 11:20 83 15 126/77 98 Room Air 01/27/25 11:10 82 12 124/75 100 Oxymask 01/27/25 11:00 80 12 128/68 100 Oxymask 01/27/25 10:50 87 15 112/60 100 Oxymask 01/27/25 10:46 36.4 C L 88 12 115/65 96 Oxymask 01/27/25 07:24 36.8 C 99 H 20 119/70 99 Room Air O2 Flow Rate 01/27/25 14:10 01/27/25 13:36 01/27/25 13:11 01/27/25 12:45 01/27/25 12:30 01/27/25 12:20 01/27/25 12:05 01/27/25 11:50 01/27/25 11:35 01/27/25 11:20 01/27/25 11:10 2 01/27/25 11:00 2 01/27/25 10:50 5 01/27/25 10:46 5 01/27/25 07:24 Transfer of Care Handoff Completed per policy Notes Mental Status: alert / awake / arousable Patient Amnestic to Procedure: Yes Nausea / Vomiting: adequately controlled Pain: adequately controlled Airway Patency, RR, SpO2: stable & adequate BP & HR: stable & adequate Hydration State: stable & adequate Neuraxial Anesthesia: was administered and sensory block is resolving Anesthetic Complications: no major complications apparent and Pt Satisfied with anesthetic care
[2025-01-27] MEDS: ASCORBIC ACID 500 MG TAB PO SCH (17:19)
[2025-01-27] MEDS: TRANEXAMIC ACID / 0.7% NACL 1,000 MG/100 ML BAG IV SCH (17:19)
[2025-01-27] MEDS: SENNA 8.6 MG TAB PO SCH (20:50)
[2025-01-27] MEDS: CALCIUM CARBONATE 1250MG TAB PO SCH (20:50)
[2025-01-27] MEDS: ASPIRIN 81 MG ECTAB PO SCH (20:51)
[2025-01-27] MEDS: DOCUSATE SODIUM 100 MG CAP PO SCH (20:51)
[2025-01-27] MEDS ORDERED: SENNA 8.6 MG TAB PO SCH (21:00)
[2025-01-28 03:47] VITALS: TEMP 97.9
[2025-01-28] MEDS: LEVOTHYROXINE SODIUM 75 MCG TABLET PO SCH (05:43)
[2025-01-28 06:20] LABS: Hematocrit (blood only) 34.0 % (37.0-47.0); Hemoglobin 11.6 g/dl (12.0-16.0); Immature Granulocytes # (auto) 0.06 K/uL (0.01-0.20); Immature Granulocytes % (auto) 0.4 %; Mean Corpuscular Hemoglobin 29.8 pg (25.0-34.0); Mean Corpuscular Volume 87.4 fL (80.0-100.0); Platelet Count 196 K/uL (130-400); RDW Standard Deviation 41.6 fL (36.4-46.3); Red Blood Count 3.89 M/uL (4.20-5.40); White Blood Count 13.34 K/ul (4.8-10.8)
[2025-01-28 06:41] LABS: Anion Gap 5.0 (3-11); Blood Urea Nitrogen 14.0 mg/dl (6-23); Calcium 8.8 mg/dl (8.6-10.3); Carbon Dioxide 30.0 mmol/L (21-32); Chloride 103.0 mmol/L (98-107); Creatinine Clr Calc Pharmacy 114.3 ml/min; Glucose 148.0 mg/dl (70-99(Fasting)); Potassium 3.7 mmol/L (3.5-5.1); Sodium 138.0 mmol/L (136-145)
[2025-01-28 07:32] VITALS: BP 111/71; PULSE 62; RESP 17; O2SAT 97
[2025-01-28] MEDS: clonazePAM 1 MG TAB PO SCH (08:04)
[2025-01-28] MEDS: CHOLECALCIFEROL 25 MCG (1000 UNITS) TAB PO SCH (08:04)
[2025-01-28] MEDS: LOSARTAN POTASSIUM 50 MG TAB PO SCH (08:05)
[2025-01-28] MEDS: LORATADINE 10 MG TAB PO SCH (08:05)
[2025-01-28] MEDS: CEROVITE ADV FORMULA TAB PO SCH (08:06)
[2025-01-28] MEDS: SERTRALINE HCL 100 MG TABLET PO SCH (08:06)
[2025-01-28] MEDS: dexAMETHasone 10 MG in SYRINGE 0 ML IV SCH (08:11)
[2025-01-28] MEDS ORDERED: MULTIVITAMIN TAB PO SCH (09:00)
--- NOTE | 2025-01-28 09:28 | Orthopedic Progress Note ---
Date of Service January 28, 2025 Assessment & Plan (1) S/P total right hip arthroplasty: * Continue Current Treatment * Disposition: home * Daily treatment: Physical Therapy/ Occupational Therapy per protocol * Weight bearing status: WBAT, hip precautions * Continue to monitor for ABLA * Pain control * DVT prophylaxis, ASA * Office/hospital f/u 2 weeks for progress check and staple/suture removal * Plan for discharge today pending PT/OT clearance Subjective .Active Problems: S/p right JOSELITO POD 1 55 y/o female s/p right JOSELITO. Doing well overall, pain managed and improved function. Denies fever/chills, chest pain/SOB, nausea/vomiting. Otherwise no complaints. Prevena holding suction. Review of Systems All systems reviewed & are unremarkable except as noted in HPI & below. Physical Exam . * General: Alert and oriented, no acute distress * Constitutional: well-developed, well-nourished. * Respiratory: Normal respiratory effort, no distress * Gastrointestinal: No tenderness to palpation, no rigidity or guarding. * Skin: No rash or lesion. * Neurologic: Grossly normal * Musculoskeletal: Right hip surgical dressing CDI, not removed for exam. Otherwise no obvious deformity or overlying skin changes. Diffuse TTP proximal thigh and hip region. Otherwise no specific tenderness of distal thigh, lower leg, foot/ankle. AROM hip flexion intact. AROM foot/ankle intact. Sensation intact plantar/dorsal foot. Brisk capillary refill. Results & Data Results & Data Laboratory Results . Diagnostic Findings . PG Care Time/CCT Total # of Minutes Spent Total Time Spent with Patient: Total time spent is greater than 50% in coordination of care (as documented) at patient's floor/unit and/or counseling patient: Coding Level of Care Code 27795 Post Operative Follow-Up Diagnoses S/P total right hip arthroplasty Z96.641
== END 2025-01-28 12:42 | disposition home health service (06) ==
LOC: ASU 07:01 → PACUINP 07:01 → 3E 13:39